=== PATIENT | female | born 1955 | race Caucasian/White ===

== ENCOUNTER 2020-03-31 15:33 | Emergency (ER) | payer OTHER ==
[~2020-03-31] VITALS: Ht 170.2 cm; Wt 68.0 kg
[~2020-03-31 15:33] MED LIST: AMITRIPTYLINE H10 M1 PO; AMITRIPTYLINE H50 M2 PO; AMOXIL 875 MG875 M1 PO; ASPIRIN EC81 M1 PO; ATIVAN0.5 MG; ATIVAN0.5 MG PO; CIPRO250 M1 PO; CIPROFLOXACIN500 M1 PO; ESTROGEN PO; FLEXERIL PO; FLOMAX0.4 MG PO; HYDROCODONE-AP1 EAC6 PO; KEFLEX500 MG PO; LEG CRAMP; LIPITOR20 MG PO; MEDROLDOSEPACK PO; MELATONIN5 M1 PO; NOHOMEMEDICATIONS; NORCO 5-325 TA1 EAC1 PO; NORCO 5-325 TA1 EACH PO; ONDANSETRON HCL4 M2 PO; PERCOCET 5-3251 EACH PO; PHENERGAN 25 MG25 M1 PO; PROVENTIL HFA6.7 G1 INH; SKELAXIN 800 M800 M1 PO; XANAFLEX
[2020-03-31 16:30] VITALS: BP 137/70
== END 2020-03-31 16:40 | disposition home or self-care (01) ==
LOC: M.ERS 15:33
DX: Z53.21 Procedure and treatment not carried out due to patient leaving prior to being seen by health care provider (principal)